=== PATIENT | female | born 1995 | race Caucasian/White ===

== ENCOUNTER 2022-06-29 00:01 | Emergency (ER) | payer BC ==
[2022-06-29] MEDS ORDERED: LIDOCAINE 1% 2 ML VIAL SUBQ STA ×2 (04:10→04:24)
[2022-06-29 05:25] VITALS: BP 129/74
[2022-06-29] MEDS ORDERED: oxyCODONE 5 MG TABLET PO STA (05:57)
[2022-06-29] MEDS ORDERED: BACITRACIN ZINC OINT 1 PACKET TOP STA (06:22)
--- NOTE | 2022-06-29 06:24 | ED Physician Documentation ---
PD HPI SKIN - Stated complaint Stated Complaint: L HAND LAC - Chief complaint Chief Complaint: Laceration - History obtained from History obtained from: Patient - Additional information Additional information: 26yF presents s/p laceration of left hand on glass tonight. unsure if foreign body in hand. 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 : None HEENT: None Psych: Anxiety, ADD/ADHD Musculoskeletal: None Derm: None - Past Surgical History Past Surgical History: No - Present Medications Home Medications: Ambulatory Orders Medication Instructions Recorded Confirmed No Known Home Medications 06/29/22 06/29/22 - Allergies Allergies/Adverse Reactions: Allergies Allergy/AdvReac Type Severity Reaction Status Date / Time No Known Drug Allergies Allergy Verified 06/29/22 00:20 - Social History Does the pt smoke?: No Smoking Status: Never smoker Does the pt drink ETOH?: No Does the pt have substance abuse?: No - Immunizations Immunizations are current?: No - POLST Patient has POLST: No PD ED PE NORMAL - Vitals Vital signs reviewed: Yes - General General: Alert and oriented X 3, No acute distress, Well developed/nourished - Derm Derm: Normal color, Warm and dry, Other (multiple shallow well approximated lacerations of L hand and fingers. one gaping lac 0.5 cm of L fourth proximal finger) - Neuro Neuro: No motor deficit, No sensory deficit - Psych Psych: Normal mood, Normal affect Results - Vitals Vitals: Vital Signs - 24 hr 06/29/22 06/29/22 06/29/22 00:20 03:53 05:18 Temperature 36.6 C Heart Rate 95 Respiratory 16 16 16 Rate Blood Pressure 136/95 H O2 Saturation 99 06/29/22 05:24 Temperature 36.8 C Heart Rate 66 Respiratory 15 Rate Blood Pressure 129/74 O2 Saturation 100 Oxygen O2 Source Room air Procedures - Laceration (location) Finger left Wound type: Irregular Neurovascular status: Sensory intact, Motor intact, Vascular intact Anesthesia: Lidocaine 1% Wound preparation: Irrigated copiously NS Skin layer closure: Nylon, Size #-0 - enter number (4), Sutures - enter # (4) Other: Patient tolerated well, No complications, Dressing applied, Tetanus UTD PD MEDICAL DECISION MAKING - ED course ED course: 26yF presented with laceration of L hand. no foreign body on xr or physical inspection. repaired with 4 sutures, to be removed in 14 days. return precautions given. Departure - Departure Disposition: 01 Home, Self Care Clinical Impression: Laceration Condition: Good Instructions: ED Laceration All Comments: You were seen in the ED for laceration of the hand and fingers. Four stitches were placed that need to be taken out in 14 days. Please return to the ED if you experience signs or symptoms of infection, severe pain, or have other concerns.
--- NOTE | 2022-06-29 08:39 | XRAY Report ---
PROCEDURE: Hand 3 View LT INDICATIONS: eval for glass foreign body TECHNIQUE: 3 views of the hand(s) acquired. COMPARISON: None FINDINGS: Bones: No fractures or dislocations. No suspicious bony lesions. Soft tissues: No suspicious soft tissue calcifications. No radiopaque foreign body. Metallic densit ies projecting obliquely jewelry ring is noted overlying portion of the fourth proximal phalanx. IMPRESSION: No radiopaque foreign body. The above findings are concordant with preliminary report. Reviewed by: Melissa Buckner MD on 06/29/2022 8:37 AM PST Approved by: Melissa Buckner MD on 06/29/2022 8:37 AM PST Station ID: [id number]
== END 2022-06-29 06:36 | disposition home or self-care (01) ==
LOC: ED 00:01
DX: S61.215A Laceration without foreign body of left ring finger without damage to nail, initial encounter (principal); S61.412A Laceration without foreign body of left hand, initial encounter; W25.XXXA Contact with sharp glass, initial encounter
CPT/HCPCS: 12001; 73130; 99283; A9270

== ENCOUNTER 2023-01-12 08:00 | Outpatient (CLI) | payer BC ==
--- NOTE | 2023-01-12 09:56 | XRAY Report ---
PROCEDURE: Wrist 4 View LT INDICATIONS: SPRAIN OF LEFT WRIST TECHNIQUE: 4 views of the wrist were acquired. COMPARISON: Left hand radiographs 06/29/2022 FINDINGS: Bones: No acute fractures or dislocations. No suspicious bony lesions. Scaphoid view: Unremarkable. Soft tissues: No suspicious soft tissue calcifications or masses. Soft tissue edema is seen at the d orsum of the wrist. IMPRESSION: No acute osseous abnormality. If there is continued clinical concern or persistent symptoms, addition al imaging such as repeat radiographs or advanced imaging (e.g. CT, MRI) may be helpful for further e valuation. Reviewed by: Nate Michele MD on 01/12/2023 9:55 AM PDT Approved by: Nate Michele MD on 01/12/2023 9:55 AM PDT Station ID: [id number]
== END 2023-01-12 23:59 | disposition home or self-care (01) ==
LOC: DI.S 08:00
PROVIDERS: ATTEND Physician Assistant Medical
DX: S63.8X2A Sprain of other part of left wrist and hand, initial encounter (principal)